=== PATIENT | male | born 1950 | race Native Hawaiian/Other Pacific Islander ===

== ENCOUNTER 2020-01-27 13:48 | Outpatient (CLI) | payer OTHER | END 2020-01-27 21:40 | disposition home or self-care (01) | LOC: RAD 13:48 | DX: R06.02 Shortness of breath (principal) ==

== ENCOUNTER 2020-03-13 08:47 | Outpatient (CLI) | payer OTHER ==
[2020-03-13 09:27] LABS: POTASSIUM 4.7 mmol/L (3.6-5.2)
[2020-03-13 09:55] LABS: PLATELET COUNT 212 K/uL (142-355)
== END 2020-03-13 19:14 | disposition home or self-care (01) ==
LOC: LABW 08:47
PROVIDERS: Specialist
DX: R07.2 Precordial pain (principal)
CPT/HCPCS: 36415; 80053; 85027

== ENCOUNTER 2020-06-19 07:13 | Outpatient (CLI) | payer OTHER | END 2020-06-19 23:08 | disposition home or self-care (01) | LOC: LABW 07:13 | PROVIDERS: ATTEND Nurse Practitioner Adult Health | DX: Z79.01 Long term (current) use of anticoagulants (principal); E78.2 Mixed hyperlipidemia; I47.2 Ventricular tachycardia | CPT/HCPCS: 36415; 80061; 80076; 84436; 84443; 84479 ==

== ENCOUNTER 2020-11-20 08:11 | Outpatient (CLI) | payer OTHER | END 2020-11-20 19:41 | disposition home or self-care (01) | LOC: LABW 08:11 | PROVIDERS: ATTEND Nurse Practitioner | DX: E78.2 Mixed hyperlipidemia (principal); I25.10 Atherosclerotic heart disease of native coronary artery without angina pectoris; I47.2 Ventricular tachycardia; Z79.899 Other long term (current) drug therapy | CPT/HCPCS: 36415; 80061; 80076; 84443 ==

== ENCOUNTER 2020-11-23 13:16 | Outpatient (CLI) | payer OTHER | END 2020-11-23 19:47 | disposition home or self-care (01) | LOC: LAB 13:16 | PROVIDERS: ATTEND Nurse Practitioner | DX: I47.2 Ventricular tachycardia (principal); I25.10 Atherosclerotic heart disease of native coronary artery without angina pectoris; E78.2 Mixed hyperlipidemia | CPT/HCPCS: 84436; 84443; 84479 ==

== ENCOUNTER 2021-03-29 08:10 | Outpatient (CLI) | payer OTHER ==
[~2021-03-29] VITALS: Ht 30.5 cm; Wt 0.5 kg
== END 2021-03-29 20:05 | disposition home or self-care (01) ==
LOC: NM 08:10
PROVIDERS: ATTEND Nurse Practitioner Adult Health
DX: I25.119 Atherosclerotic heart disease of native coronary artery with unspecified angina pectoris (principal)
CPT/HCPCS: A9500; J2785

== ENCOUNTER 2021-07-10 13:59 | Outpatient (CLI) | payer OTHER | END 2021-07-10 19:05 | disposition home or self-care (01) | LOC: LABW 13:59 | PROVIDERS: ATTEND Internal Medicine | DX: R19.7 Diarrhea, unspecified (principal) | CPT/HCPCS: 87328; 87329 ==